=== PATIENT | male | born 1950 | race Caucasian/White ===

== ENCOUNTER → 2018-04-21 | Outpatient (CLI) | payer MEDICARE ==
--- NOTE | 2018-04-21 16:56 | KCIC ---
2 view study of the right hip Clinical indications: Right hip pain for one month. FINDINGS: No acute fracture or dislocation or osteolytic process is evident. No significant arthritic change is seen. IMPRESSION: No significant osseous abnormality. Electronically signed by: Abelardo Estrella MD (04/21/2018 4:52 PM) [facility]
--- NOTE | 2018-04-21 17:37 | KCIC ---
MRI of the lumbar spine without contrast 04/21/2018 CLINICAL HISTORY: Low back pain. TECHNIQUE: Unenhanced T1-weighted and T2-weighted sagittal and axial and inversion recovery sagittal images of the lumbar spine were obtained. FINDINGS: Very mild S-shaped curvature of the thoracolumbar spine is seen. Degenerative signal changes are seen involving all the disks of the lumbar spine. Loss of height of the L4-5 disc is noted. Degenerative signal changes are seen within the marrow surrounding these discs. The conus medullaris is normal morphology, position, and signal characteristics. Rounded high signal intensity lesions are seen involving the right kidney on the T2-weighted images. These measure 5 mm to 1.7 cm in size. These likely represent cysts. At the L1-2, L2-3 and L3-4 disc spaces there are minimal to mild generalized disc bulges. Degenerative changes are seen involving the facet joints bilaterally. These findings do not result in significant central spinal canal or neural foraminal stenosis. At the L4-5 disc space there is a mild to moderate generalized disc bulge. Degenerative changes are seen involving the facet joints bilaterally. There is mild to moderate ligamentum flavum hypertrophy bilaterally. These findings when combined result in mild central spinal canal stenosis. No neural foraminal stenosis is seen. At the L5-S1 disc space is a mild generalized disc bulge. Degenerative changes are seen involving the facet joints bilaterally. These findings do not result in significant central spinal canal or neural foraminal stenosis. IMPRESSION: The changes of degenerative disc disease are seen involving the lumbar spine. These findings result in mild central spinal canal stenosis at L4-5. No neural foraminal stenosis is seen. Electronically signed by: Stephen Khan MD (04/21/2018 5:33 PM) [facility]
== END | disposition home or self-care (01) ==
LOC: KCIC MRI 15:34
PROVIDERS: ATTEND Internal Medicine
DX: M51.36 Other intervertebral disc degeneration, lumbar region (principal); M48.061 Spinal stenosis, lumbar region without neurogenic claudication; M25.551 Pain in right hip
CPT/HCPCS: 72148; 73502

== ENCOUNTER → 2020-11-14 | Outpatient (CLI) | payer MEDICARE ==
--- NOTE | 2020-11-14 15:14 | RAD ---
EXAMINATION: XR CHEST 2V CLINICAL HISTORY: Cough, shortness of breath EXAM DATE/TIME: 11/14/2020 12:29 PM COMPARISON: None FINDINGS: Lines, Tubes, and Devices: None. Cardiomediastinal Silhouette: Normal heart size. Aortic atherosclerotic calcification. Lungs and Pleura: No evidence of focal airspace consolidation or pleural effusion. Old calcified gran ulomatous disease. Pulmonary vasculature unremarkable. Bones and Soft Tissues: Degenerative changes of the thoracic spine. IMPRESSION: No evidence of acute cardiopulmonary abnormality. Electronically signed by: Long Peng DO (11/14/2020 3:12 PM) [facility]
== END ==
LOC: RAD 12:04
PROVIDERS: ATTEND Internal Medicine Pulmonary Disease
DX: R05 Cough (principal); R06.02 Shortness of breath; I70.0 Atherosclerosis of aorta; M47.814 Spondylosis without myelopathy or radiculopathy, thoracic region
CPT/HCPCS: 71046

== ENCOUNTER → 2020-12-07 | Outpatient (CLI) | payer MEDICARE ==
--- NOTE | 2020-12-10 12:37 | RESP ---
DATE OF SERVICE: 12/10/2020 The patient underwent full pulmonary function testing on 12/07. The FEV1 to FVC ratio is 76%. FEV1 was slightly decreased to 1.88 liters. FVC was 2.46 liters. Total lung capacity was preserved. IMPRESSION: Very mild airflow limitation. OLIVIA/ISABEL DR: Rakesh TID: [id number]
== END ==
LOC: PF 07:44
PROVIDERS: ATTEND Internal Medicine Pulmonary Disease
DX: R05 Cough (principal)
CPT/HCPCS: 94060; 94640; 94726; 94729; 94664